=== PATIENT | male | born 1985 | race African-American/Black ===

== ENCOUNTER 2020-01-09 11:37 | Emergency (ER) | payer OTHER ==
[~2020-01-09] VITALS: Ht 180.3 cm; Wt 118.8 kg
--- NOTE | 2020-01-09 13:15 | NUR ---
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
[2020-01-09 13:20] LABS: ALBUMIN 4.3 g/dL (3.4-5.0); ANION GAP 6 mmol/L (5-15); CALCIUM 9.2 mg/dL (8.5-10.1); CHLORIDE 107 mmol/L (98-107); CREATININE 1.12 mg/dL (0.7-1.3)
[2020-01-09 13:24] LABS: MEAN CORPUSCULAR HEMOGLOBIN 30.1 pg (27.5-34.5); MEAN CORPUSCULAR HGB CONC 34.2 g/dL (33.2-36.2); MEAN CORPUSCULAR VOLUME 88.1 fL (81-97); MEAN PLATELET VOLUME 7.3 fL (7.4-10.4); PLATELET COUNT 279 x10^3/uL (130-400); RED CELL DISTRIBUTION WIDTH 13.8 % (9.4-14.8)
[2020-01-09] MEDS ORDERED: HYDROmorphone 1 MG/ML, 1ML INJ IM ONE (13:30)
[2020-01-09] MEDS ORDERED: HYDROmorphone 1 MG/ML, 1ML INJ ONE (13:34)
[2020-01-09 13:41] LABS: BASOPHILS # (AUTO) 0.03 x10^3/uL (0-0.1); BASOPHILS % (AUTO) 0 % (0-1); EOSINOPHILS # (AUTO) 0.05 x10^3/uL (0-0.4); EOSINOPHILS % (AUTO) 1 % (1-7); LYMPHOCYTES # (AUTO) 1.88 x10^3/uL (1-3.4); LYMPHOCYTES % (AUTO) 28 % (22-44); MD SCAN; MONOCYTES # (AUTO) 0.48 x10^3/uL (0.2-0.8); MONOCYTES % (AUTO) 7 % (2-9); NEUTROPHILS # (AUTO) 4.24 x10^3/uL (1.8-6.8); NEUTROPHILS % (AUTO) 63 % (42-75)
--- NOTE | 2020-01-09 14:01 | NUR ---
PT LAYING ON GURNEY WITH EYES CLOSED, ABLE TO DOZE OFF BUT RESPONDS APPROP TO STAF, STATES [facility]ITCH[facility] IS A LITTLE BETTER WITH NAD, NO NEEDS AT THIS TIME, FRIENDS AT BS, CALL LIGHT WITHIN REACH.
[2020-01-09] MEDS ORDERED: OXYcodone/APAP 5/325MG TABLET PO ONE (14:30)
[2020-01-09] MEDS ORDERED: OXYcodone/APAP 5/325MG TABLET ONE (14:35)
--- NOTE | 2020-01-09 15:01 | NUR ---
PT CONTINUES LAYING ON GURNEY WITH EYES CLOSED, ABLE TO DOZE OFF BUT RESPONDS APPROP TO STAFF, NAD BUT BP REMANS ELEVATED- ERP AWARE, NO NEEDS AT THIS TIME, FRIENDS AT BS, CALL LIGHT WITHIN REACH.
--- NOTE | 2020-01-09 16:03 | NUR ---
PT LAYING ON GURNEY WITH EYES CLOSED, ABLE TO DOZE OFF, RESPONDS APPROP TO STAFF, NAD , PT MEDICATED PER EMAR, NO NEEDS AT THIS TIME, CALL LIGHT WITHIN REACH.
[2020-01-09 16:21] VITALS: BP 159/101
--- NOTE | 2020-01-09 16:28 | NUR ---
Patient given discharge instructions and Rx, they have confirmed that they understand the instructions. Patient ambulatory with steady gait.
== END 2020-01-09 16:31 | disposition home or self-care (01) ==
LOC: ED 16:20
DX: R51 Headache (principal); I10 Essential (primary) hypertension; I51.7 Cardiomegaly
CPT/HCPCS: 36415; 70450; 80048; 82040; 85025; 93005; 96372; 99285; J1170